=== PATIENT | female | born 1995 | race Caucasian/White ===

== ENCOUNTER 2022-12-03 20:48 | Inpatient (IN) | payer BC ==
[2022-12-03] MEDS ORDERED: hydrALAZINE 20 MG/ML VIAL SLOW IVP PRN (21:11)
[2022-12-03] MEDS ORDERED: Acetaminophen 500 MG TAB PO PRN (21:11)
[2022-12-03] MEDS ORDERED: Methylergonovine 0.2 MG/ML VIAL IM PRN (21:11)
[2022-12-03] MEDS ORDERED: HYDROcodone/Acetaminophen 5/325 mg Tablet PO PRN (21:11)
[2022-12-03] MEDS ORDERED: Lidocaine 1% (PF) 30 ML VIAL SC PRN (21:11)
[2022-12-03] MEDS ORDERED: Docusate 100 MG CAP PO PRN (21:11)
[2022-12-03] MEDS ORDERED: Carboprost 250 MCG/ML AMP IM PRN (21:11)
[2022-12-03] MEDS ORDERED: Misoprostol 200 MCG TAB PR PRN (21:11)
[2022-12-03] MEDS ORDERED: Promethazine HCl 25 MG/ML VIAL IM PRN (21:11)
[2022-12-03] MEDS ORDERED: Ibuprofen 800 MG TAB PO PRN (21:11)
[2022-12-03] MEDS ORDERED: Diphenoxylate HCl/Atropine Tablet PO PRN ×2 (21:11)
[2022-12-03] MEDS ORDERED: Oxytocin 30 units/NS 500 ML 500 ML IV SCH ×3 (21:15)
[2022-12-03] MEDS ORDERED: Penicillin G Potassium 5 MILL.UNITS in Sodium Chloride 0.9% 100 ML IVPB SCH (21:15)
[2022-12-03] MEDS ORDERED: Misoprostol 100 MCG TAB VAG SCH (21:15)
[2022-12-03 21:18] VITALS: BMI 27.1
[2022-12-03] MEDS: Lactated Ringer's 1,000 ML IV SCH (21:30)
[2022-12-03 21:49] LABS: Hematocrit 33.4 % (34.9-44.5); Hemoglobin 11.5 g/dL (12.0-15.5); Mean Corpuscular HGB CONC 34.4 g/dL (32.0-36.0); Mean Platelet Volume 12.1 fl (7.4-10.4); Platelet Count 185 10x3/uL (150-450); RBC Distribution Width 12.3 % (11.5-14.5); Red Blood Cell (RBC) Count 3.71 10x6/uL (3.90-5.03); White Blood Cell (WBC) Count 12.2 10x3/uL (3.5-10.5)
[2022-12-03 22:12] LABS: HBSAg Index 0.09 S/CO (0-0.99); Hep B Surf Ag - L&D Non-Reactive S/CO (NonReactive); Syphilis Antibody Nonreactive (Nonreactive); Syphilis Antibody Index 0.11 S/CO (<1.00 Non-Reactive)
[2022-12-04] MEDS ORDERED: fentaNYL 50 mcg/mL 1 mL Vial ONE ×3 (01:21→16:52)
[2022-12-04] MEDS ORDERED: fentaNYL 50 mcg/mL 1 mL Vial SLOW IVP SCH (01:45)
[2022-12-04] MEDS ORDERED: fentaNYL/Ropivacaine Epidural 100 ML ONE (02:22)
[2022-12-04] MEDS: Ondansetron PF 4 MG/2 ML Vial IVP PRN ×3 (02:42→14:41)
[2022-12-04] MEDS ORDERED: Naloxone HCl 0.4 mg/ml Vial IVP PRN ×4 (02:50→17:32)
[2022-12-04] MEDS ORDERED: ePHEDrine Sulfate 50 MG/10 ML VIAL SLOW IVP PRN (02:50)
[2022-12-04] MEDS ORDERED: Promethazine HCl 25 MG/ML VIAL IM PRN ×2 (02:50→17:32)
[2022-12-04] MEDS ORDERED: Ondansetron PF 4 MG/2 ML Vial IVP PRN ×4 (02:50→19:03)
[2022-12-04] MEDS ORDERED: Moisturizing Cream (Eucerin) 113 GM JAR TOP PRN ×2 (02:50→17:32)
[2022-12-04] MEDS ORDERED: Acetaminophen 325 MG TAB PO PRN (02:50)
[2022-12-04] MEDS ORDERED: diphenhydrAMINE 50 MG/ML VIAL IVP PRN ×2 (02:50→17:32)
[2022-12-04] MEDS ORDERED: Lactated Ringer's 500 ML IV PRN (02:50)
[2022-12-04] MEDS ORDERED: fentaNYL 2 mcg/Ropivacaine 0.2% Epidural 100 ML CADD EPIDURAL SCH (03:00)
[2022-12-04] MEDS ORDERED: Communication Order-Pharmacy FS SCH ×2 (03:00→17:45)
[2022-12-04] MEDS: Lactated Ringer's 1,000 ML IV SCH ×2 (03:16→19:12)
[2022-12-04] MEDS: Penicillin G 2.5 MILL.units 2.5 MILL.UNITS in Premix 1 BAG IVPB SCH ×5 (03:35→19:12)
[2022-12-04 13:34] LABS: ALT (SGPT) 16 U/L (8-55); AST (SGOT) 21 U/L (5-34); Albumin 3.3 g/dL (3.5-5.0); Alkaline Phosphatase 95 U/L (40-110); Anion Gap 14 mmol/L (10-20); BUN (Urea Nitrogen) 14 mg/dL (7.0-18.7); Bilirubin, Total 0.7 mg/dL (0.2-1.2); Calc. Creatinine Clearance 118 mL/min (70-130); Calcium 8.6 mg/dL (7.8-10.44); Carbon Dioxide 21 mmol/L (22-29); Chloride 107 mmol/L (98-107); Estimated GFR 103; Globulin 3.1 g/dL (2.4-3.5); Glucose 80 mg/dL (70-105); Potassium 4.3 mmol/L (3.5-5.1); Protein, Total 6.4 g/dL (6.0-8.3); Sodium 138 mmol/L (136-145)
[2022-12-04 13:35] LABS: Mean Corpuscular Volume 93.7 fl (81.6-98.3)
[2022-12-04 13:38] LABS: #Monocytes 1.2 10x3/uL (0.0-1.1); #Neutrophils 16.2 10x3/uL (1.5-8.4); %Basophils 0.2 % (0.0-2.0); %Monocytes 6.2 % (0.0-10.0); %Neutrophils 81.9 % (40.0-75.0); Hemoglobin 12.2 g/dL (12.0-15.5); Mean Corpuscular Hemoglobin 30.9 pg (27.0-33.0); Mean Platelet Volume 12.3 fl (7.4-10.4); Platelet Count 172 10x3/uL (150-450); RBC Distribution Width 12.6 % (11.5-14.5); Red Blood Cell (RBC) Count 3.95 10x6/uL (3.90-5.03); White Blood Cell (WBC) Count 19.8 10x3/uL (3.5-10.5)
[2022-12-04] MEDS ORDERED: CEFAZOLIN 2 GM VIAL ONE (15:49)
[2022-12-04] MEDS ORDERED: Famotidine/PF 20 mg/2ml Vial SLOW IVP PRN (15:51)
[2022-12-04] MEDS ORDERED: Bicitra 30 ML UDCUP PO PRN (15:51)
[2022-12-04] MEDS ORDERED: PHENYLEPHRINE-NS 100 MCG/ML 10 ML SYRINGE ONE (15:55)
[2022-12-04] MEDS ORDERED: Oxytocin 10 UNITS/ML VIAL ONE ×5 (15:55→16:20)
[2022-12-04] MEDS ORDERED: Ondansetron PF 4 MG/2 ML Vial ONE (15:55)
[2022-12-04] MEDS ORDERED: Lidocaine 2% MPF 10 ML AMP (For Epidural Use) ONE ×2 (15:55→16:47)
[2022-12-04] MEDS ORDERED: Phytonadione Neonatal 1 MG/0.5 ML AMP ONE (15:59)
[2022-12-04] MEDS ORDERED: Erythromycin Base 0.5% Oint 1 GM TUBE ONE (15:59)
[2022-12-04] MEDS ORDERED: CEFAZOLIN 2 GM in Sodium Chloride 0.9% 100 ML IVPB SCH (16:00)
[2022-12-04] MEDS ORDERED: ePHEDrine Sulfate 50 MG/10 ML VIAL ONE (16:06)
[2022-12-04] MEDS ORDERED: Glycopyrrolate 0.2 MG/ML 5 ML SYRINGE ONE (16:10)
[2022-12-04] MEDS ORDERED: Morphine PF 10 MG/10 ML VIAL ONE (16:19)
[2022-12-04] MEDS ORDERED: Ketorolac Tromethamine 30 MG/ML VIAL ONE (16:51)
[2022-12-04] MEDS ORDERED: Promethazine HCl 25 MG SUPP PR PRN (17:32)
[2022-12-04] MEDS ORDERED: HYDROmorphone 0.5 MG/0.5 ML SYRINGE SLOW IVP PRN (17:32)
[2022-12-04] MEDS ORDERED: Meperidine HCl/PF 25 MG/ML VIAL SLOW IVP PRN (17:32)
[2022-12-04] MEDS ORDERED: fentaNYL 50 mcg/mL 1 mL Vial SLOW IVP PRN (17:32)
[2022-12-04] MEDS ORDERED: Naloxone HCl 0.4 mg/ml Vial IV PRN (17:32)
[2022-12-04] MEDS ORDERED: Ketorolac Tromethamine 30 MG/ML VIAL IVP SCH (17:45)
[2022-12-04] MEDS ORDERED: hydrALAZINE 20 MG/ML VIAL SLOW IVP PRN (19:03)
[2022-12-04] MEDS ORDERED: Boostrix 0.5 ML (Tdap) VIAL (>/=7 yrs of age) IM ONE (19:03)
[2022-12-04] MEDS ORDERED: Methylergonovine 0.2 MG/ML VIAL IM PRN (19:03)
[2022-12-04] MEDS ORDERED: Simethicone Chewable 80 MG TAB PO PRN (19:03)
[2022-12-04] MEDS ORDERED: Misoprostol 200 MCG TAB PR PRN (19:03)
[2022-12-04] MEDS ORDERED: Oxytocin 30 units/NS 500 ML 500 ML IV SCH (19:03)
[2022-12-04] MEDS: Ketorolac Tromethamine 30 MG/ML VIAL IVP PRN (22:26)
[2022-12-04] MEDS: diphenhydrAMINE 25 MG CAP PO PRN (22:26)
[2022-12-05] MEDS: diphenhydrAMINE 25 MG CAP PO PRN (02:54)
[2022-12-05 04:25] LABS: Hematocrit 28.9 % (34.9-44.5); Hemoglobin 9.5 g/dL (12.0-15.5); Mean Corpuscular HGB CONC 32.9 g/dL (32.0-36.0); Mean Corpuscular Hemoglobin 30.5 pg (27.0-33.0); Mean Corpuscular Volume 92.9 fl (81.6-98.3); Mean Platelet Volume 12.1 fl (7.4-10.4); Platelet Count 143 10x3/uL (150-450); RBC Distribution Width 12.7 % (11.5-14.5); Red Blood Cell (RBC) Count 3.11 10x6/uL (3.90-5.03); White Blood Cell (WBC) Count 17.8 10x3/uL (3.5-10.5)
[2022-12-05] MEDS: Ketorolac Tromethamine 30 MG/ML VIAL IVP PRN (04:42)
[2022-12-05] MEDS ORDERED: HYDROcodone/Acetaminophen 5/325 mg Tablet PO PRN (05:45)
[2022-12-05] MEDS: Ferrous Sulfate 325 MG TAB PO SCH ×3 (07:29→20:12)
[2022-12-05] MEDS: Docusate 100 MG CAP PO SCH ×3 (07:29→20:12)
[2022-12-05] MEDS: HYDROcodone/Acetaminophen 5/325 mg Tablet PO PRN ×3 (08:33→20:12)
[2022-12-05] MEDS: Prenatal Vitamin 1 TAB PO SCH (11:42)
[2022-12-05] MEDS: Ibuprofen 800 MG TAB PO SCH ×2 (14:04→22:25)
[2022-12-05] MEDS ORDERED: Senokot 8.6 MG TAB PO PRN (21:06)
[2022-12-05] MEDS ORDERED: Polyethylene Glycol 3350 17 GM Packet PO PRN (21:06)
[2022-12-05] MEDS ORDERED: Bisacodyl 10 MG SUPP PR PRN (21:06)
[2022-12-06] MEDS: HYDROcodone/Acetaminophen 5/325 mg Tablet PO PRN (02:10)
[2022-12-06 04:17] LABS: #Basophils 0.1 10x3/uL (0.0-0.2); #Eosinphils 0.1 10x3/uL (0.0-0.5); #Monocytes 0.8 10x3/uL (0.0-1.1); #Neutrophils 10.1 10x3/uL (1.5-8.4); %Basophils 0.4 % (0.0-2.0); %Lymphocytes 11.3 % (18.0-47.0); %Monocytes 5.7 % (0.0-10.0); %Neutrophils 76.7 % (40.0-75.0); Hematocrit 29.6 % (34.9-44.5); Hemoglobin 9.5 g/dL (12.0-15.5); Mean Corpuscular HGB CONC 32.1 g/dL (32.0-36.0); Mean Corpuscular Hemoglobin 30.5 pg (27.0-33.0); Mean Corpuscular Volume 95.2 fl (81.6-98.3); Mean Platelet Volume 11.9 fl (7.4-10.4); Platelet Count 168 10x3/uL (150-450); Red Blood Cell (RBC) Count 3.11 10x6/uL (3.90-5.03); White Blood Cell (WBC) Count 13.2 10x3/uL (3.5-10.5)
[2022-12-06] MEDS: Ibuprofen 800 MG TAB PO SCH (05:12)
[2022-12-06 07:39] VITALS: BP 108/54; TEMP 97.8
[2022-12-06] MEDS: Docusate 100 MG CAP PO SCH (08:13)
[2022-12-06] MEDS: Ferrous Sulfate 325 MG TAB PO SCH (08:13)
[2022-12-06] MEDS: Prenatal Vitamin 1 TAB PO SCH (08:15)
== END 2022-12-06 10:30 | disposition home or self-care (01) | DRG 788 ==
LOC: CSHLD 20:48 → CSHPED 12-04 20:47
PROVIDERS: ADMIT Family Medicine; ATTEND Family Medicine
PROC: 10D00Z1 Extraction of Products of Conception, Low, Open Approach (ICD-10-PCS; principal; 2022-12-04)
PROC: 3E033XZ Introduction of Vasopressor into Peripheral Vein, Percutaneous Approach (ICD-10-PCS; 2022-12-04)
DX: O99.824 Streptococcus B carrier state complicating childbirth (principal); Z3A.39 39 weeks gestation of pregnancy; Z37.0 Single live birth; O32.8XX0 Maternal care for other malpresentation of fetus, not applicable or unspecified; O32.4XX0 Maternal care for high head at term, not applicable or unspecified
CPT/HCPCS: 36415; 51702; 80053; 85025; 85027; 86780; 86850; 86900; 86901; 87340; J1885; J2274; J2405; J2540; J2590; J3010; J3490; J7120